=== PATIENT | male | born 1965 | race Caucasian/White ===

== ENCOUNTER 2023-01-18 09:55 | Outpatient (CLI) | payer OTHER, SELFPAY ==
[2023-01-18 15:28] LABS: Free T4 Free Thyroxine* 0.62 ng/dL (0.70-1.85)
[2023-01-18 15:48] LABS: PSA Screen* 0.75 ng/mL (0.10-4.00)
== END 2023-01-18 09:56 | disposition home or self-care (01) ==
PROVIDERS: PCP Family Medicine; Visit Provider Family Medicine
DX: E03.9 Hypothyroidism, unspecified (principal); Z12.5 Encounter for screening for malignant neoplasm of prostate
CPT/HCPCS: 84153; 84439; 84443

== ENCOUNTER 2024-06-16 09:04 | Outpatient (CLI) | payer OTHER, SELFPAY | END 2024-06-16 09:05 | disposition home or self-care (01) | PROVIDERS: PCP Family Medicine; Visit Provider Family Medicine | DX: E03.9 Hypothyroidism, unspecified (principal); Z13.0 Encounter for screening for diseases of the blood and blood-forming organs and certain disorders involving the immune mechanism; Z13.1 Encounter for screening for diabetes mellitus | CPT/HCPCS: 80048; 84439; 84443 ==